=== PATIENT | male | born 1980 | race Caucasian/White ===

== ENCOUNTER → 2018-01-08 | Emergency (ER) | payer OTHER ==
[~2018-01-08] VITALS: Ht 180.3 cm; Wt 111.6 kg
[~2018-01-08] MED LIST: CELEBREX100 MG PO; SKELAXIN800 MG PO
== END | disposition left against medical advice (07) ==
LOC: ER 10:21
DX: Z53.20 Procedure and treatment not carried out because of patient's decision for unspecified reasons (principal)

== ENCOUNTER 2018-09-17 13:04 | Emergency (ER) | payer OTHER ==
[~2018-09-17] VITALS: Ht 180.3 cm; Wt 115.2 kg
== END 2018-09-17 15:08 | disposition home or self-care (01) ==
LOC: ER 13:04
DX: J06.9 Acute upper respiratory infection, unspecified (principal)

== ENCOUNTER 2018-12-19 23:15 | Emergency (ER) | payer OTHER ==
[~2018-12-19] VITALS: Ht 180.3 cm; Wt 113.4 kg
[2018-12-20] MEDS ORDERED: PEPCID40 MG PO (05:10)
[2018-12-20] MEDS ORDERED: LEVSIN/SL0.125 MG SL (05:10)
== END 2018-12-20 05:26 | disposition home or self-care (01) ==
LOC: ER 23:15
DX: K30 Functional dyspepsia (principal); R10.84 Generalized abdominal pain

== ENCOUNTER 2019-03-15 10:40 | Emergency (ER) | payer OTHER ==
[~2019-03-15] VITALS: Ht 180.3 cm; Wt 108.9 kg
[~2019-03-15 10:40] MED LIST changes: +LEVSIN/SL0.125 MG SL; +PEPCID40 MG PO
== END 2019-03-15 12:09 | disposition home or self-care (01) ==
LOC: ER 10:40
DX: M79.672 Pain in left foot (principal); M79.671 Pain in right foot

== ENCOUNTER 2024-12-24 11:38 | Emergency (ER) | payer OTHER ==
[~2024-12-24] VITALS: Ht 180.3 cm; Wt 110.7 kg
[2024-12-24] MEDS ORDERED: ONDANSETRON HCL 2 MG/ML VIAL ONE (13:43)
[2024-12-24] MEDS ORDERED: FAMOTIDINE/PF 20 MG/2 ML VIAL ONE (13:44)
[2024-12-24] MEDS ORDERED: FAMOTIDINE/PF 20 MG/2 ML VIAL IV PUSH ONE (13:45)
[2024-12-24] MEDS ORDERED: ONDANSETRON HCL 2 MG/ML VIAL IV ONE (13:45)
[2024-12-24 14:03] LABS: HEMOGLOBIN 15.9 g/dL (13-16.00); MEAN CELL VOLUME 87.7 fL (80.0-100.00); MEAN CORPUSCULAR HEMOGLOBIN 29.7 pg (27.00-32.0); MEAN CORPUSCULAR HGB CONC 33.9 g/dl (32.0-36.0); PLATELET COUNT 233 K/uL (150-450); RED BLOOD COUNT 5.36 M/uL (4.00-6.00); RED CELL DISTRIBUTION WIDTH 14.4 % (11.5-14.5)
[2024-12-24 14:27] LABS: CALCIUM 9.4 mg/dL (8.5-10.1); CREATININE SERUM 1.09 mg/dL (0.70-1.30); GFR 73.49; POTASSIUM 4.06 mEq/L (3.5-5.1)
[2024-12-24 14:32] LABS: PH,URINE 5.5 (5.0-8.0); URINE APPEARANCE Cloudy; URINE BILIRRUBIN Negative (NEGATIVE); URINE BLOOD Negative; URINE COLOR Dark Yellow; URINE GLUCOSE Negative (NEGATIVE); URINE KETONE Negative (NEGATIVE); URINE LEUKOCYTE Negative; URINE NITRATE Negative; URINE PROTEIN 30 (NEGATIVE)
[2024-12-24 14:36] LABS: URINE BACTERIA 23.2 uL (0.0-1933); URINE RBC 6.9 uL (0.0-20.8); URINE WBC 11.3 uL (0.0-23.2)
[2024-12-24 14:37] LABS: URINE CAST 1.32 uL (0.0-1.40)
== END 2024-12-24 16:03 | disposition home or self-care (01) ==
LOC: ER 11:40
PROVIDERS: General Practice
DX: R53.81 Other malaise (principal); K52.9 Noninfective gastroenteritis and colitis, unspecified; I10 Essential (primary) hypertension